=== PATIENT | female | born 1950 | race Caucasian/White ===

== ENCOUNTER → 2016-09-11 | Outpatient (CLI) | payer MEDICARE, OTHER | LOC: WI 08:10 | PROVIDERS: ATTEND Nurse Practitioner Family | DX: Z12.31 Encounter for screening mammogram for malignant neoplasm of breast (principal) | CPT/HCPCS: 77063; G0202; 77067 ==

== ENCOUNTER → 2017-02-04 | Outpatient (CLI) | payer MEDICARE, OTHER ==
--- NOTE | 2017-02-04 12:27 | RADIOLOGY REPORT (SQ) ---
EXAM DESCRIPTION: CHEST PA/LATERAL COMPLETED DATE/TIME: 02/04/2017 12:14 pm REASON FOR STUDY: PRE OP COMPARISON: 01/16/2016 EXAM PARAMETERS: NUMBER OF VIEWS: two views TECHNIQUE: Digital Frontal and Lateral radiographic views of the chest acquired. RADIATION DOSE: NA LIMITATIONS: none FINDINGS: LUNGS AND PLEURA: No opacities, masses or pneumothorax. No pleural effusion. MEDIASTINUM AND HILAR STRUCTURES: No masses or contour abnormalities. HEART AND VASCULAR STRUCTURES: Heart normal size. No evidence for failure. BONES: No acute findings. HARDWARE: None in the chest. OTHER: No other significant finding. IMPRESSION: NO SIGNIFICANT RADIOGRAPHIC FINDING IN THE CHEST. TECHNICAL DOCUMENTATION: JOB ID: [id number] [employer]- All Rights Reserved
--- NOTE | 2017-02-04 12:42 | EKG REPORT ---
SEVERITY:- OTHERWISE NORMAL ECG - SINUS RHYTHM ATRIAL PREMATURE COMPLEX : Confirmed by: Pedro Robles MD 04-Feb-2017 12:40:54
[2017-02-04 13:17] LABS: ANION GAP 11 (5-19); BLOOD UREA NITROGEN 17 mg/dL (7-20); CALCIUM 9.7 mg/dL (8.4-10.2); CARBON DIOXIDE 26 mmol/L (22-30); CHLORIDE 102 mmol/L (98-107); CREATININE RESULT 0.58 mg/dL (0.52-1.25); GLUCOSE 111 mg/dL (75-110); POTASSIUM 4.2 mmol/L (3.6-5.0); SODIUM 138.9 mmol/L (137-145)
== END ==
LOC: OD 11:44
PROVIDERS: ATTEND Orthopaedic Surgery
DX: Z01.810 Encounter for preprocedural cardiovascular examination (principal); Z01.812 Encounter for preprocedural laboratory examination; Z01.818 Encounter for other preprocedural examination; Z01.89 Encounter for other specified special examinations
CPT/HCPCS: 36415; 71020; 80048; 93005; 93010

== ENCOUNTER → 2017-09-21 | Outpatient (CLI) | payer MEDICARE, OTHER ==
--- NOTE | 2017-09-21 14:46 | WOMENS IMAGING REPORT ---
EXAM DESCRIPTION: 3D SCREENING MAMMO BILAT COMPLETED DATE/TIME: 09/21/2017 1:06 pm REASON FOR STUDY: ROUTINE SCREENING;Z12.31 Z12.31 ENCNTR SCREEN MAMMOGRAM FOR MALIGNANT NEOPLASM OF HERBERT COMPARISON: 2015, 2016 TECHNIQUE: Standard craniocaudal and mediolateral oblique views of each breast recorded using digita l acquisition and breast tomosynthesis. LIMITATIONS: None. FINDINGS: No masses, calcifications or architectural distortion. No areas of suspicion. Read with the assistance of CAD. .[facility] - R2 Cenova Version 1.3 .[facility] - R2 Cenova Version 1.3 .[facility] - R2 Cenova Version 2.4 .[facility] - R2 Cenova Version 2.4 .[facility] - R2 [employer] Property Inspector Version 9.2 IMPRESSION: NORMAL MAMMOGRAM. BIRADS 1. BREAST DENSITY: b. There are scattered areas of fibroglandular density. BIRAD: 1 NEGATIVE RECOMMENDATION: ROUTINE SCREENING COMMENT: The patient has been notified of the results by letter per SA requirements. Additional no tification policies are in place for contacting patient with suspicious or incomplete findings. Quality ID #[id number]: The [employer] recommends an annual screening mammogram for women aged 40 years or over. This facility utilizes a reminder system to ensure that all patients receive reminder letters, and/or direct phone calls for appointments. This includes reminders for routine scr eening mammograms, diagnostic mammograms, or other Breast Imaging Interventions when appropriate. Th is patient will be placed in the appropriate reminder system. The [employer] (ACR) has developed recommendations for screening MRI of the breast s in certain patient populations, to be used in conjunction with mammography. Breast MRI surveillanc e may be appropriate for women with more than 20% lifetime risk of developing breast cancer as deter mined by genetic testing, significant family history of the disease, or history of mantle radiation f or Hodgkins Disease. ACR Practice Guidelines 2008. DBT Technology DBT is a type of tomographic mammography. With conventional mammography, overlapping breast tissue ma y make lesions difficult to detect, even with good compression. DBT uses an x-ray tube that rotates a round the breast, taking images at different angles. These images are then combined to create thin sl ices of the breast that the radiologist can view as a 3D reconstruction. The bSafe unit can perform full-field digital mammograms (2D imaging); or DBT (3D imaging); or both, in a combination mode that quickly performs both the mammogram and the tomosynthesis scan while the breast is still compressed. PQRS 6045F: Fluoroscopic imaging is not utilized for breast tomosynthesis. TECHNICAL DOCUMENTATION: FINDING NUMBER: (1) ASSESSMENT: (1) JOB ID: [id number] [employer]- All Rights Reserved Reading location - IP/workstation name: [facility]
== END ==
LOC: WI 12:49
PROVIDERS: ATTEND Internal Medicine
DX: Z12.31 Encounter for screening mammogram for malignant neoplasm of breast (principal)
CPT/HCPCS: 77063; 77067

== ENCOUNTER → 2017-12-23 | Day surgery (SDC) | payer MEDICARE, OTHER ==
[~2017-12-23] MED LIST: BUPIVACAINE HCL 0.5 % INJ/PF 30 ML SDV ONE
--- NOTE | 2017-12-23 13:16 | Operative Report ---
PROCEDURE: KNEE RADIOFREQUENCY left under ultrasound guidance Preoperative Diagnosis: left knee osteoarthritis Postoperative Diagnosis:left knee osteoarthritis 1. Superolateral genicular branch from the vastus lateralis 2. Superomedial genicular branch from the vastus medialis 3. Inferomedial genicular branch from the saphenous nerve 4. Medial retinacular branch from the vastus intermedius DATE OF PROCEDURE: 23 December 2017 ANESTHESIA: Local anesthesia COMPLICATIONS: None reported PROCEDURE IN DETAIL: Hx/PE/meds/allergies/applicable labs reviewed. No changes and no contraindications were found. Full description of the procedure was provided including benefits as well as possible complications including transient increased pain, stomach irritation, mood alteration, transient weakness or parasthesias as well as more serious nerve injury, bleeding, infection or allergic reaction. Informed consent was obtained and documented. The patient was brought to the procedure room and placed on the exam table in a comfortable supine position. The place for needle placement was obtained by manual palpation with ultrasound confirmation. The sterile field was prepared by chloroprep and sterile drapes. Local anesthesia superficial and deep was provided by local infiltration of 2% lidocaine. A 17g 50mm radiofrequency introducer needle with a 4 mm active tip was placed overlying the left knee joint and using ultrasound guidance the needle was advanced to a bony endpoint on the superiolateral portion of the femoral condyle of the left knee. A second needle was advanced to a bony endpoint on the superiomedial portion of the femoral condyle. A third needle was then placed over the inferiomedial portion of the tibial condyle until a bony endpoint was met. 4th needle placed 3mm above the patella with the tip in contact with the Medial retinacular branch from the vastus intermedius. Attempted aspiration yielded no blood. Transverse ultrasound views showed all the needles at 50% depth of the femur and tibia. Motor stimulation was tested at 2.0 volts with no leg movement. Images were saved in AP and lateral. A mixture consisting of 0.5% bupivacaine was slowly injected. Then a radiofrequency ablation of each of the geniculate nerves were done at 80 degrees Celsius for 2 minutes and 30 seconds each. The needles were withdrawn. The patient tolerated the procedure well. After observation the patient was discharged with instructions and follow up. They were also provided contact information to call regarding any concerning symptoms or questions. IMPRESSION: 1. Successful geniculate left knee radiofrequency ablation was performed. 2. The patient was given prescription of home medicines. 3. RTC in 1-2 week(s).
== END ==
LOC: RAD 11:55
PROVIDERS: ATTEND Family Medicine
DX: M17.12 Unilateral primary osteoarthritis, left knee (principal)
CPT/HCPCS: 64640 ×4; J3490

== ENCOUNTER 2018-12-24 09:23 | Emergency (ER) | payer MEDICARE, OTHER ==
--- NOTE | 2018-12-24 09:53 | ER Document Report ---
ED Neck/Back Problem - General Chief Complaint: Back Pain Stated Complaint: LOWER BACK PAIN Time Seen by Provider: 12/24/18 09:32 Primary Care Provider: STEVE IQBAL MD [ACTIVE STAFF] - Follow up as needed Mode of Arrival: Wheelchair Information source: Patient Notes: 68-year-old female presented to ED for complaint of low back pain. She has a history of degenerative disc disease and 2 back surgeries. She states for the last week or so that the pain is been much worse going down both legs worse on the left. She states she does have Lidoderm patches tramadol meloxicam ketorolac pills another anti-inflammatory and she thinks she was taken a muscle relaxer for this pain. It is a chronic pain. He states she does get injections in her back sometimes. She states she just had a colonoscopy done a week and a half ago and then she just had CTs done last week for blood in her urine. She has had a complete hysterectomy. She has had thyroid removed inguinal hernia repair hysterectomy gallbladder removed and appendectomy. Patient is alert oriented respirations regular and unlabored speaking in full sentences. She does have pain on both SI joints and pain going down both thighs. She states there is no change in the function of her bowel or bladder, denies saddle anesthesia, denies loss of control or sensation to her lower extremities. She does state it lane from across her buttocks down both lateral thighs TRAVEL OUTSIDE OF THE [place] IN LAST 30 DAYS: No - HPI Patient complains to provider of: Pain, Lower back Onset: Other - Chronic worse for the last week and a half going down both legs Timing: Still present, Worse Quality of pain: Burning, Sharp Severity: Moderate Pain Level: 2 Recent injury: No Associated symptoms: Radiation to leg, Lower back pain - Across buttocks down both legs worse on the left Exacerbated by: Movement of trunk, Sitting position Relieved by: Nothing Similar symptoms previously: Yes Recently seen / treated by doctor: Yes - Related Data Allergies/Adverse Reactions: Penicillins Allergy (Severe, Verified 12/24/18 09:25) rash Past Medical History - General Information source: Patient - Social History Smoking Status: Never Smoker Frequency of alcohol use: Occasional Drug Abuse: None Lives with: Family Family History: Reviewed & Not Pertinent Patient has suicidal ideation: No Patient has homicidal ideation: No - Past Medical History Cardiac Medical History: Reports: Hx Hypertension Pulmonary Medical History: Reports: Hx Asthma - allergy induced asthma, Hx Bronchitis EENT Medical History: Reports: None Neurological Medical History: Reports: None Endocrine Medical History: Reports: Hx Hypothyroidism - Wound removed Renal/ Medical History: Reports: None Malignancy Medical History: Reports: None GI Medical History: Reports: Hx Gastritis, Hx Gastroesophageal Reflux Disease, Hx Colonoscopy, Hx Endoscopy Musculoskeletal Medical History: Reports Hx Arthritis - bursitis bilateral hips, Reports Hx Musculoskeletal Deformity, Reports Hx Musculoskeletal Trauma, Reports Other - Osteoporosis Skin Medical History: Reports None Infectious Medical History: Reports: None Past Surgical History: Reports: Hx Appendectomy, Hx Section, Hx Cholecystectomy, Hx Hysterectomy, Hx Inguinal Hernia, Hx Orthopedic Surgery - 2 back surgeries due to degenerative disc, Hx Thyroid Surgery - Thyroid removed - Immunizations Hx Diphtheria, Pertussis, Tetanus Vaccination: Yes Hx Pneumococcal Vaccination: 02/16/11 Review of Systems - Review of Systems Constitutional: No symptoms reported EENT: No symptoms reported Cardiovascular: No symptoms reported Respiratory: No symptoms reported Gastrointestinal: No symptoms reported Genitourinary: No symptoms reported Female Genitourinary: No symptoms reported Musculoskeletal: Back pain - With bilateral sciatica pain, Muscle pain, Muscle stiffness Skin: No symptoms reported Hematologic/Lymphatic: No symptoms reported Neurological/Psychological: No symptoms reported -: Yes All other systems reviewed and negative Physical Exam - Vital signs Vitals: Temp Pulse Resp BP Pulse Ox 97.3 F 92 18 139/75 H 95 12/24/18 09:28 12/24/18 09:28 12/24/18 09:28 12/24/18 09:28 12/24/18 09:28 Interpretation: Normal - General General appearance: Appears well, Alert - HEENT Head: Normocephalic, Atraumatic Eyes: Normal Pupils: PERRL - Respiratory Respiratory status: No respiratory distress Chest status: Nontender Breath sounds: Normal Chest palpation: Normal - Cardiovascular Rhythm: Regular Heart sounds: Normal auscultation Murmur: No - Abdominal Inspection: Normal Distension: No distension Bowel sounds: Normal Tenderness: Nontender Organomegaly: No organomegaly - Back Back: Tender, Vertebra tenderness - Low back pain no saddle anesthesia no signs or symptoms of cauda equina no loss control of bowel bladder does have pain down both buttocks down both thighs but no loss of sensation or loss of control of both extremities., Scars - 2 previous surgeries - Extremities General upper extremity: Normal inspection, Nontender, Normal color, Normal ROM, Normal temperature General lower extremity: Normal inspection, Nontender, Normal color, Normal ROM, Normal temperature, Normal weight bearing. No: Maco's sign - Neurological Neuro grossly intact: Yes Cognition: Normal Orientation: AAOx4 Ade Coma Scale Eye Opening: Spontaneous Ade Coma Scale Verbal: Oriented [place] Coma Scale Motor: Obeys Commands Ade Coma Scale Total: 15 Speech: Normal Motor strength normal: LUE, RUE, LLE, RLE Sensory: Normal - Psychological Associated symptoms: Normal affect, Normal mood - Skin Skin Temperature: Warm Skin Moisture: Dry Skin Color: Normal Course - Re-evaluation Re-evalutation: 12/24/18 10:46 Discussed x-rays with patient and written report of x-rays given to patient. She states she is follow-up with [facility] for surgery. There was multiple things going on to cause her back. She states she had been having some of these in the past. She does have arthritis she does have narrowing in the disc space. She was treated with Toradol Decadron Lidoderm and Robaxin. She was given instructions for back exercises hot packs and cold packs. She states she will follow-up with the enrichment specialist next week. She will take her x-ray report with her. Patient is alert oriented respirations regular and unlabored speaking in full sentences. After performing a Medical Screening Examination, I estimate there is LOW risk for EXPANDING OR RUPTURED ABDOMINAL AORTIC ANEURYSM, CAUDA EQUINA SYNDROME, EPIDURAL MASS LESION, or HERNIATED DISK CAUSING SEVERE SPINAL STENOSIS, thus I consider the discharge disposition reasonable. I have reevaluated this patient multiple times and no significant life threatening changes are noted. The patient and I have discussed the diagnosis and risks, and we agree with discharging home and close follow-up. We also discussed returning to the Emergency Department immediately if new or worsening symptoms occur with the understanding that symptoms and presentations can change. We have discussed the symptoms which are most concerning (e.g., saddle anesthesia, urinary or bowel incontinence or retention, changing or worsening pain) that necessitate immediate return. - Vital Signs Vital signs: Temp Pulse Resp BP Pulse Ox 97.3 F 92 18 139/75 H 95 12/24/18 09:28 12/24/18 09:28 12/24/18 09:28 12/24/18 09:28 12/24/18 09:28 - Diagnostic Test Radiology reviewed: Image reviewed, Reports reviewed Discharge - Discharge Clinical Impression: Acute exacerbation of chronic low back pain Condition: Stable Disposition: HOME, SELF-CARE Additional Instructions: Chronic Pain Control Stress, inactivity, and depression make pain more severe regardless of the cause of the pain. Stress and poor physical condition can cause pain such as headaches and backache. Relaxation: Rest in a quiet place with your eyes closed for 20 minutes twice daily. Concentrate on a pleasant image, or simply "feel" your breathing. Clear your mind. Stress management: Deal with your "stressors." Either take action, or eliminate the stressor from your life. Don't let things hang over you. Accept those things you can't change. Nutrition: Eat small, balanced meals -- don't skip, don't overeat. Meals should be high-carbohydrate, low-sugar, low-fat. Exercise: Exercise helps painful conditions and eases stress. Get 30 minutes of moderate exercise, five days a week. Do an activity that does not flare your pain. Precautions: Pain which continues to disrupt daily activities, or which changes in nature, requires a medical evaluation. Pain Clinic referral is available. We do not manage chronic pain in the Emergency Department. We will try to appropriately help you through an acute flare of your chronic painful condition, but for on-going chronic pain that does not improve, you will need to see your private doctor or supervisor painting shipyard. We do not provide repeated medication management of chronic painful conditions. If you wish, we can provide the name of local pain management physicians. MUSCLE RELAXERS: Muscle relaxing medications are usually prescribed for acute muscle spasm or injury to the neck and back. They are often combined with antiinflammatory pain medication for increased relief. You may stop the muscle relaxer when the pain and stiffness have improved. Start the medication again if spasms recur. Muscle relaxers may cause drowsiness, especially with the first dose. Do not operate machinery or drive while under the effects of the medication. Most muscle relaxers last up to 24 hours. Do not combine the medication with alcohol. Toradol Injection You have been given an injection of ketorolac tromethamine (Toradol). This is an excellent, safe drug for pain control. It also has potent antiinflammatory action. You should have significant pain relief within about one hour. Toradol is not addicting and is non-sedating. It does not interfere with driving or work. Call or return if you develop itching, hives, shortness of breath, or rash. STEROID MEDICATION: You have been given an injection of medicine of the cortisone/steroid class. This medication is used to control inflammation or allergy. It is often continued as a pill for a short period of time, until the acute process subsides. There are usually no side effects from short-term use of cortisone-like medications. Some persons feel an increased sense of well-being and are not sleepy at bedtime. Long-term use of cortisone medications is best avoided, unless required for a severe condition. If your condition does not remit, or relapses after the course of corticosteroid medication, you should consult your physician. Stretching Exercises for the Back The physician has recommended that you begin stretching exercises for your back. These are often used even while the back is painful. However, you should notify the physician if the activities seem to increase your pain. PELVIC TILT: Lie flat on your back with knees bent. Tighten your stomach and buttock muscles so it flattens your lower back against the floor. Hold 10 seconds. Repeat 10 times, twice daily. KNEE RAISE: Lying on the back with knees bent, raise one knee to your chest, then the other. Hold both knees against the chest 10 seconds, then lower one knee at a time. Repeat 10 times, twice daily. PARTIAL TRUNK RAISE: Lie face down, arms at your sides. Keeping your waist on the floor, use your arms raise your chest up. Support yourself on your elbows for 30 seconds. Repeat twice daily, increasing the time to two minutes as you recover. I have placed a Lidoderm patch on your back at this time. This can stay on for 12 hours then needs to be removed from 12 hours and then can be reapplied. Please do not put heating packs over top of a Lidoderm patch as it releases more Lidoderm than is supposed to. ICE PACKS: Apply ice packs frequently against the painful area. Many different schedules are recommended, such as "20 minutes on, 20 minutes off" or "one hour ice, two hours rest." If you need to work, you may need to go longer between ice treatments. You should plan to have the area ice packed AT LEAST one fourth of the time. The ice should be applied over the wrap, tape, or splint, or over a layer of cloth -- not directly against the skin. Some ice bags have a built-in cloth and can be put directly on the skin. WARM PACKS: After approximately two days, apply gentle heat (such as a heating pad or hot water bottle) for about 20 to 30 minutes about every two hours -- at least four times daily. Warmth and elevation will help you make a more rapid recove ry, and will ease the pain considerably. Do not use HOT heat, and never apply heat for longer than 30 minutes. The continuous heat can invisibly damage skin and muscles -- even when no burn is s een on the surface. Damaged muscles can make you MORE sore. FOLLOW-UP CARE: If you have been referred to a physician for follow-up care, call the physicians office for an appointment as you were instructed or within the next two days. If you experience worsening or a significant change in your symptoms, notify the physician immediately or return to the Emergency Department at any time for re-evaluation. Forms: Elevated Blood Pressure Referrals: STEVE IQBAL MD [ACTIVE STAFF] - Follow up as needed [facility] [Provider Group] - Follow up as needed
[2018-12-24] MEDS ORDERED: KETOROLAC TROMETHAMINE INJ/PF 30 MG/1 ML SDV IM ONE (09:56)
[2018-12-24] MEDS ORDERED: DEXAMETHASONE SOD PHOS INJ 10 MG/1 ML VIAL IM ONE (09:57)
[2018-12-24] MEDS ORDERED: LIDOCAINE 5% (700 MG) TRANSDERMAL ADH..PATCH TP ONE (09:57)
[2018-12-24] MEDS ORDERED: METHOCARBAMOL 500 MG TABLET PO ONE (09:57)
--- NOTE | 2018-12-24 10:19 | RADIOLOGY REPORT (SQ) ---
EXAM DESCRIPTION: L SPINE WHOLE COMPLETED DATE/TIME: 12/24/2018 9:57 am REASON FOR STUDY: low back pain previous surgery COMPARISON: None. NUMBER OF VIEWS: Five views including obliques. TECHNIQUE: AP, lateral, oblique, and sacral radiographic images acquired of the lumbar spine. LIMITATIONS: None. FINDINGS: MINERALIZATION: Normal. SEGMENTATION: Normal. No transitional anatomy. ALIGNMENT: Normal. VERTEBRAE: Maintained height. No fracture or worrisome bone lesion. DISCS: Multilevel disc space narrowing with osteophytes. POSTERIOR ELEMENTS: Pedicles and facets are intact. No pars defect or posterior arch defects. Facet arthropathy is present. HARDWARE: Posterior spinal fusion hardware at the L4 and L5 levels, the left connecting brian is fractu red above the left L5 pedicle screw level, no significant displacement. PARASPINAL SOFT TISSUES: Normal. PELVIS: Intact as visualized. No fractures or worrisome bone lesions. SI joints intact. OTHER: No other significant finding. 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 TECHNICAL DOCUMENTATION: JOB ID: [id number] 2010 [employer]- All Rights Reserved Reading location - IP/workstation name: [email or web address]
[2018-12-24 10:42] VITALS: BP 127/66
== END 2018-12-24 10:46 | disposition home or self-care (01) ==
LOC: ER 09:23
DX: G89.29 Other chronic pain (principal); M54.5 Low back pain
CPT/HCPCS: 99283; 96372; 72110; A9270; J1885; J1100

== ENCOUNTER 2019-01-10 07:38 | Day surgery (SDC) | payer MEDICARE, OTHER ==
[2019-01-10 09:24] LABS: INTERNATIONAL RATION (INR) 1.02; PROTHROMBIN TIME 13.4 SEC (11.4-15.4)
[2019-01-10 09:26] LABS: PARTIAL THROMBOPLASTIN TIME 25.5 SEC (23.5-35.8)
[2019-01-10] MEDS ORDERED: ONDANSETRON HCL INJ/PF 4 MG/2 ML SDV IV ONE (11:00)
[2019-01-10] MEDS ORDERED: OXYCODONE-ACETAMINOPHEN 5-325 MG TABLET ONE (13:00)
[2019-01-10] MEDS ORDERED: OXYCODONE-ACETAMINOPHEN 5-325 MG TABLET PO ONE (13:00)
--- NOTE | 2019-01-10 13:23 | RADIOLOGY REPORT (SQ) ---
EXAM DESCRIPTION: CT LUMBAR SPINE WITH; MYELOGRAM LUMBAR COMPLETED DATE/TIME: 01/10/2019 11:23 am; 01/10/2019 11:11 am REASON FOR STUDY: ARTHRODESIS STATUS Z98.1 ARTHRODESIS STATUS Z79.01 [facility] (CURRENT) USE OF AN TICOAGULANTS COMPARISON: 12/24/2018 FLUOROSCOPY TIME: 1.1 minutes 21 images saved to PACS. TECHNIQUE: Fluoroscopic guided lumbar myelogram. LIMITATIONS: None. PROCEDURE: After written consent and assessment were obtained, the patient was brought into the fluo roscopy room and placed prone on the table. The patient's lower back was prepped in a sterile fashio n and an entry site was selected under live fluoroscopic guidance. The entry site was anesthetized wi th 1% lidocaine. The spinal needle was advanced through the skin and into the thecal sac at the level of L2-3. Contrast was injected into the thecal sac. Following the procedure the needle was removed and a sterile bandage was placed of the site. CONTRAST: 15 cc mL Omnipaque 180. IMAGES ACQUIRED: 21 TECHNIQUE: After performing lumbar myelogram, axial images were acquired through the lumbar spine wi thout intravenous contrast. Images reviewed with lung, soft tissue and bone windows. Reconstructed coronal and sagittal MPR images reviewed. All images stored on PACS. All CT scanners at this facility use dose modulation, iterative reconstruction, and/or weight based d osing when appropriate to reduce radiation dose to as low as reasonably achievable (ALARA). [facility]: Dose Right [facility]: CareDose [facility]: Dose Right [facility]: Teradose 4D [facility]: [employer] FINDINGS: SEGMENTATION: Normal. No transitional anatomy. ALIGNMENT: Straightening of the normal lumbar lordosis. VERTEBRAL BODIES: No fractures. No dislocation. No acute findings. HARDWARE: Posterior fusion hardware and interbody spacer at L4-5. DISCS: L1-L2: Broad circumferential disc bulge without significant spinal canal stenosis. No significant ne ural foraminal narrowing. L2-L3: Broad circumferential disc bulge without significant spinal canal stenosis. There is contact of the traversing nerve roots. Mild bilateral neural foraminal narrowing secondary to broad-based di sc bulge. L3-L4: Broad-based circumferential disc bulge with mild canal narrowing contact of the traversing ner ve roots. There is mild bilateral neural foraminal narrowing secondary to disc bulge. L4-L5: Postsurgical changes from the posterior fusion and interbody spacer. No significant spinal ca nal stenosis mild right neural foraminal narrowing secondary to residual disc and likely postsurgical ossific material (sagittal image 15 and axial image 70) which is below the exiting nerve root. L5-S1: There is disc height loss with soft tissue posterior to the L5-S1 disc base and resultant high -grade spinal canal stenosis and effacement of the thecal sac. Findings suggestive of left paramedia n disc extrusion extending inferiorly and measuring approximately 17 mm in cranial caudal dimension ( sagittal image 23) and measuring approximately 9 x 10 mm and AP and lateral dimension (axial image 82 ). Exact delineation of the soft tissue limited secondary to adjacent hardware artifact and CT techn ique. There is significant disc height loss compared to prior exam dated 12/16/2015. These findings a re inferior to the exiting nerve roots and likely affect the transiting nerve roots. PEDICLES, TRANSVERSE PROCESSES: No fractures. No dislocation. No acute findings. FACETS, POSTERIOR ELEMENTS: No fractures. No dislocation. VISUALIZED RIBS: No fractures. SOFT TISSUES: Aortoiliac atherosclerosis. No bulky retroperitoneal adenopathy or mass. OTHER: Conus medullaris terminates at T12-L1 IMPRESSION: 1. New significant disc height loss with soft tissue posterior to the L5-S1 disc space and resultant high-grade spinal canal stenosis and effacement of the thecal sac suggestive of disc ex clusion and as detailed above. MRI could be considered for further evaluation. 2. L4-5 posterior fusion hardware with additional multilevel degenerative changes as detailed above. COMMENT: Patient medication list reviewed: Yes- Quality ID# [id number]:Eligible professional attests to doc umenting in the medical record they obtained, updated, or reviewed the patient's current medications. TECHNICAL DOCUMENTATION: JOB ID: [id number] Quality ID # [id number]: Final reports with documentation of one or more dose reduction techniques (e.g., Au tomated exposure control, adjustment of the mA and/or kV according to patient size, use of iterative reconstruction technique) 2010 [employer]- All Rights Reserved Reading location - IP/workstation name: [email or web address]
--- NOTE | 2019-01-10 13:23 | RADIOLOGY REPORT (SQ) ---
EXAM DESCRIPTION: CT LUMBAR SPINE WITH; MYELOGRAM LUMBAR COMPLETED DATE/TIME: 01/10/2019 11:23 am; 01/10/2019 11:11 am REASON FOR STUDY: ARTHRODESIS STATUS Z98.1 ARTHRODESIS STATUS Z79.01 [facility] (CURRENT) USE OF AN TICOAGULANTS COMPARISON: 12/24/2018 FLUOROSCOPY TIME: 1.1 minutes 21 images saved to PACS. TECHNIQUE: Fluoroscopic guided lumbar myelogram. LIMITATIONS: None. PROCEDURE: After written consent and assessment were obtained, the patient was brought into the fluo roscopy room and placed prone on the table. The patient's lower back was prepped in a sterile fashio n and an entry site was selected under live fluoroscopic guidance. The entry site was anesthetized wi th 1% lidocaine. The spinal needle was advanced through the skin and into the thecal sac at the level of L2-3. Contrast was injected into the thecal sac. Following the procedure the needle was removed and a sterile bandage was placed of the site. CONTRAST: 15 cc mL Omnipaque 180. IMAGES ACQUIRED: 21 TECHNIQUE: After performing lumbar myelogram, axial images were acquired through the lumbar spine wi thout intravenous contrast. Images reviewed with lung, soft tissue and bone windows. Reconstructed coronal and sagittal MPR images reviewed. All images stored on PACS. All CT scanners at this facility use dose modulation, iterative reconstruction, and/or weight based d osing when appropriate to reduce radiation dose to as low as reasonably achievable (ALARA). [facility]: Dose Right [facility]: CareDose [facility]: Dose Right [facility]: Teradose 4D [facility]: [employer] FINDINGS: SEGMENTATION: Normal. No transitional anatomy. ALIGNMENT: Straightening of the normal lumbar lordosis. VERTEBRAL BODIES: No fractures. No dislocation. No acute findings. HARDWARE: Posterior fusion hardware and interbody spacer at L4-5. DISCS: L1-L2: Broad circumferential disc bulge without significant spinal canal stenosis. No significant ne ural foraminal narrowing. L2-L3: Broad circumferential disc bulge without significant spinal canal stenosis. There is contact of the traversing nerve roots. Mild bilateral neural foraminal narrowing secondary to broad-based di sc bulge. L3-L4: Broad-based circumferential disc bulge with mild canal narrowing contact of the traversing ner ve roots. There is mild bilateral neural foraminal narrowing secondary to disc bulge. L4-L5: Postsurgical changes from the posterior fusion and interbody spacer. No significant spinal ca nal stenosis mild right neural foraminal narrowing secondary to residual disc and likely postsurgical ossific material (sagittal image 15 and axial image 70) which is below the exiting nerve root. L5-S1: There is disc height loss with soft tissue posterior to the L5-S1 disc base and resultant high -grade spinal canal stenosis and effacement of the thecal sac. Findings suggestive of left paramedia n disc extrusion extending inferiorly and measuring approximately 17 mm in cranial caudal dimension ( sagittal image 23) and measuring approximately 9 x 10 mm and AP and lateral dimension (axial image 82 ). Exact delineation of the soft tissue limited secondary to adjacent hardware artifact and CT techn ique. There is significant disc height loss compared to prior exam dated 12/16/2015. These findings a re inferior to the exiting nerve roots and likely affect the transiting nerve roots. PEDICLES, TRANSVERSE PROCESSES: No fractures. No dislocation. No acute findings. FACETS, POSTERIOR ELEMENTS: No fractures. No dislocation. VISUALIZED RIBS: No fractures. SOFT TISSUES: Aortoiliac atherosclerosis. No bulky retroperitoneal adenopathy or mass. OTHER: Conus medullaris terminates at T12-L1 IMPRESSION: 1. New significant disc height loss with soft tissue posterior to the L5-S1 disc space and resultant high-grade spinal canal stenosis and effacement of the thecal sac suggestive of disc ex clusion and as detailed above. MRI could be considered for further evaluation. 2. L4-5 posterior fusion hardware with additional multilevel degenerative changes as detailed above. COMMENT: Patient medication list reviewed: Yes- Quality ID# [id number]:Eligible professional attests to doc umenting in the medical record they obtained, updated, or reviewed the patient's current medications. TECHNICAL DOCUMENTATION: JOB ID: [id number] Quality ID # [id number]: Final reports with documentation of one or more dose reduction techniques (e.g., Au tomated exposure control, adjustment of the mA and/or kV according to patient size, use of iterative reconstruction technique) 2010 [employer]- All Rights Reserved Reading location - IP/workstation name: [email or web address]
[2019-01-10 14:28] VITALS: BP 149/66
== END 2019-01-10 14:05 | disposition home or self-care (01) ==
LOC: RAD 07:38
PROVIDERS: ATTEND Orthopaedic Surgery
DX: Z98.1 Arthrodesis status (principal); Z79.01 Long term (current) use of anticoagulants
CPT/HCPCS: 36415; 85610; 85730; 72265; 72132; A9270; J2405

== ENCOUNTER 2019-01-12 09:43 | Emergency (ER) | payer MEDICARE, OTHER ==
[2019-01-12] MEDS ORDERED: ONDANSETRON HCL INJ/PF 4 MG/2 ML SDV IV ONE (10:19)
[2019-01-12] MEDS ORDERED: NORMAL SALINE 1000 ML 1,000 ML IV ONE (10:19)
[2019-01-12] MEDS ORDERED: FENTANYL CITRATE INJ/PF 100 MCG/2 ML AMPUL IV ONE (10:19)
--- NOTE | 2019-01-12 10:21 | ER Document Report ---
ED Medical Screen (RME) - General Chief Complaint: Nausea/Vomiting Stated Complaint: HEADACHE,NAUSEA,VOMITING Time Seen by Provider: 01/12/19 10:10 Primary Care Provider: YOLANDA SYED MD [Primary Care Provider] - Follow up as needed Information source: Patient Notes: Patient presents complaining of headache, generalized body ache pain and low back pain. Patient has a history of low back pain and had a myelogram performed 3 days ago. Patient was seen by her primary doctor today who sent her here for concern about a possible CSF leak or infection. Patient reports nausea vomiting since yesterday with some diarrhea today. Patient denies any urinary symptoms. hx: Hypertension, chronic back pain I have greeted and performed a rapid initial assessment of this patient. A com prehensive ED assessment and evaluation of the patient, analysis of test results and completion of the medical decision making process will be conducted by additional ED providers. TRAVEL OUTSIDE OF THE [place] IN LAST 30 DAYS: No - Related Data Allergies/Adverse Reactions: Penicillins Allergy (Severe, Verified 01/12/19 09:44) rash Past Medical History - Past Medical History Cardiac Medical History: Reports: Hx Hypertension Denies: Hx Coronary Artery Disease, Hx Heart Attack Pulmonary Medical History: Reports: Hx Asthma Denies: Hx Bronchitis, Hx COPD, Hx Pneumonia Neurological Medical History: Denies: Hx Cerebrovascular Accident, Hx Seizures Endocrine Medical History: Reports: Hx Hypothyroidism - Wound removed Renal/ Medical History: Denies: Hx Peritoneal Dialysis GI Medical History: Reports: Hx Gastritis, Hx Gastroesophageal Reflux Disease, Hx Colonoscopy, Hx Endoscopy Musculoskeltal Medical History: Reports Hx Arthritis, Reports Hx Musculoskeletal Deformity, Reports Hx Musculoskeletal Trauma Past Surgical History: Reports: Hx Appendectomy, Hx Section, Hx Mary cystectomy, Hx Hysterectomy, Hx Inguinal Hernia, Hx Orthopedic Surgery - 2 back surgeries due to degenerative disc, Hx Thyroid Surgery - Thyroid removed. Denies: Hx Pacemaker - Immunizations Hx Diphtheria, Pertussis, Tetanus Vaccination: No History of Influenza Vaccine for 02/2017 - 07/2017 Season: Refused Physical Exam - Vital signs Vitals: Temp Pulse Resp BP Pulse Ox 98.0 F 95 18 117/70 95 01/12/19 09:47 01/12/19 09:47 01/12/19 09:47 01/12/19 09:47 01/12/19 09:47 - Abdominal Notes: Generalized abdominal tenderness - Neurological Orientation: AAOx4 [place] Coma Scale Eye Opening: Spontaneous Ade Coma Scale Verbal: Oriented Dulce Coma Scale Motor: Obeys Commands Ade Coma Scale Total: 15 Course - Vital Signs Vital signs: Temp Pulse Resp BP Pulse Ox 98.0 F 95 18 117/70 95 01/12/19 09:47 01/12/19 09:47 01/12/19 09:47 01/12/19 09:47 01/12/19 09:47 Doctor's Discharge - Discharge Referrals: YOLANDA SYED MD [Primary Care Provider] - Follow up as needed
[2019-01-12 10:36] LABS: ABSOLUTE BASOPHILS # (AUTO) 0.1 10^3/uL (0.0-0.2); ABSOLUTE EOSINOPHILS # (AUTO) 0.2 10^3/uL (0.0-0.6); ABSOLUTE LYMPHOCYTES (AUTO) 1.9 10^3/uL (0.5-4.7); ABSOLUTE MONOCYTES (AUTO) 0.6 10^3/uL (0.1-1.4); ABSOLUTE NEUT (AUTO) 4.7 10^3/uL (1.7-8.2); BASOPHILS % (AUTO) 0.8 % (0-2); HEMATOCRIT 45.4 % (36.0-47.0); HEMOGLOBIN 15.1 g/dL (12.0-15.5); LYMPHOCYTES % (AUTO) 25.6 % (13-45); MEAN CORPUSCULAR HEMOGLOBIN 30.6 pg (27.0-33.4); MEAN CORPUSCULAR HGB CONC 33.2 g/dL (32.0-36.0); MEAN CORPUSCULAR VOLUME 92 fl (80-97); MONOCYTES % (AUTO) 8.6 % (3-13); PLATELET COUNT 252 10^3/uL (150-450); RED BLOOD COUNT 4.94 10^6/uL (3.72-5.28); RED CELL DISTRIBUTION WIDTH 14.3 % (11.5-14.0); TOTAL CELLS COUNTED % (AUTO) 100 %; WHITE BLOOD COUNT 7.5 10^3/uL (4.0-10.5)
[2019-01-12 11:02] LABS: ALBUMIN 4.6 g/dL (3.5-5.0); ALKALINE PHOSPHATASE 34 U/L (38-126); ANION GAP 13 (5-19); ASPARTATE AMINO TRANSFERASE 23 U/L (14-36); BILIRUBIN,DIRECT 0.2 mg/dL (0.0-0.4); BILIRUBIN,TOTAL 0.7 mg/dL (0.2-1.3); BLOOD UREA NITROGEN 16 mg/dL (7-20); CALCIUM 9.8 mg/dL (8.4-10.2); CARBON DIOXIDE 26 mmol/L (22-30); CHLORIDE 98 mmol/L (98-107); GLUCOSE 137 mg/dL (75-110); TOTAL PROTEIN 7.2 g/dL (6.3-8.2)
[2019-01-12 11:15] LABS: INTERNATIONAL RATION (INR) 0.96; PROTHROMBIN TIME 12.8 SEC (11.4-15.4)
--- NOTE | 2019-01-12 11:15 | ER Document Report ---
ED General - General Chief Complaint: Nausea/Vomiting Stated Complaint: HEADACHE,NAUSEA,VOMITING Time Seen by Provider: 01/12/19 10:10 Primary Care Provider: YOLANDA SYED MD [Primary Care Provider] - Follow up as needed TRAVEL OUTSIDE OF THE [place] IN LAST 30 DAYS: No - HPI Notes: Patient presents for concern of headache chills that started on Wednesday after having a myelogram performed at this hospital. She is also been having headache nausea and vomiting but no chest pain shortness of breath no abdominal pain. No vision change - Related Data Allergies/Adverse Reactions: Penicillins Allergy (Severe, Verified 01/12/19 09:44) rash Past Medical History - General Information source: Patient - Social History Smoking Status: Never Smoker Family History: Reviewed & Not Pertinent Patient has suicidal ideation: No Patient has homicidal ideation: No - Past Medical History Cardiac Medical History: Reports: Hx Hypertension Denies: Hx Coronary Artery Disease, Hx Heart Attack Pulmonary Medical History: Reports: Hx Asthma Denies: Hx Bronchitis, Hx COPD, Hx Pneumonia Neurological Medical History: Denies: Hx Cerebrovascular Accident, Hx Seizures Endocrine Medical History: Reports: Hx Hypothyroidism - Wound removed Renal/ Medical History: Denies: Hx Peritoneal Dialysis GI Medical History: Reports: Hx Gastritis, Hx Gastroesophageal Reflux Disease, Hx Colonoscopy, Hx Endoscopy Musculoskeletal Medical History: Reports Hx Arthritis, Reports Hx Muscu loskeletal Deformity, Reports Hx Musculoskeletal Trauma Past Surgical History: Reports: Hx Appendectomy, Hx Section, Hx Cholecystectomy, Hx Hysterectomy, Hx Inguinal Hernia, Hx Orthopedic Surgery - 2 back surgeries due to degenerative disc, Hx Thyroid Surgery - Thyroid removed. Denies: Hx Pacemaker - Immunizations Hx Diphtheria, Pertussis, Tetanus Vaccination: No Hx Pneumococcal Vaccination: 02/16/11 Review of Systems - Review of Systems Constitutional: No symptoms reported EENT: No symptoms reported Cardiovascular: No symptoms reported Respiratory: No symptoms reported Gastrointestinal: No symptoms reported Genitourinary: No symptoms reported Female Genitourinary: No symptoms reported Musculoskeletal: No symptoms reported Skin: No symptoms reported Hematologic/Lymphatic: No symptoms reported Neurological/Psychological: See HPI Physical Exam - Vital signs Vitals: Temp Pulse Resp BP Pulse Ox 98.0 F 95 18 117/70 95 01/12/19 09:47 01/12/19 09:47 01/12/19 09:47 01/12/19 09:47 01/12/19 09:47 - General General appearance: Appears well, Alert - HEENT Head: Normocephalic, Atraumatic Eyes: Normal Conjunctiva: Normal Cornea: Normal Extraocular movements intact: Yes - Respiratory Respiratory status: No respiratory distress Chest status: Nontender Breath sounds: Normal Chest palpation: Normal - Cardiovascular Rhythm: Regular Heart sounds: Normal auscultation Murmur: No - Abdominal Inspection: Normal Distension: No distension Bowel sounds: Normal - Back Back: Other - Bruising lower lumbar midline back from pyelogram was performed - Extremities General upper extremity: Normal inspection General lower extremity: Normal strength - Neurological Neuro grossly intact: Yes Cognition: Normal Orientation: AAOx4 [place] Coma Scale Verbal: Oriented Speech: Normal Cranial nerves: Normal Motor strength normal: LUE, RUE, LLE, RLE Course - Re-evaluation Re-evalutation: 01/12/19 11:[address] Palacios. She reviewed the patient's myelogram. She reviewed the labs. The patient does not have a serum leukocytosis she is afebrile with normal vitals. Radiology technicians came to evaluate the patient in the emergency department for lumbar puncture and her headache improved when lying completely flat. This was suggestive of spinal tap headache versus other more concerning etiologies. I discussed this finding with the patient she is ad vised to lie flat for the next day and drink plenty of fluids. She is to have follow-up labs tomorrow or sooner in the emergency department if development of any fevers. Her signs and symptoms more consistent with a spinal headache as opposed to or other concerning pathologies. She is initially shivering in the emergency department but has stopped completely after blankets were placed over her. 01/12/19 11:37 - Vital Signs Vital signs: Temp Pulse Resp BP Pulse Ox 98.4 F 95 14 126/75 H 96 01/12/19 11:23 01/12/19 09:47 01/12/19 10:21 01/12/19 10:21 01/12/19 10:21 - Laboratory Result Diagrams: 01/12/19 10:13 01/12/19 10:13 Laboratory results interpreted by me: 01/12/19 01/12/19 10:13 10:13 RDW 14.3 H Sodium 136.7 L Glucose 137 H Alkaline Phosphatase 34 L Discharge - Discharge Clinical Impression: Headache Qualifiers: Headache type: unspecified Headache chronicity pattern: unspecified pattern Intractability: not intractable Qualified Code(s): R51 - Headache Condition: Good Disposition: HOME, SELF-CARE Additional Instructions: Please return to the emergency department tomorrow for lab redraw. Also, return sooner if development of any fevers or worsening symptoms. Lie down flat and please drink plenty of water as you are symptoms are suggestive of a spinal tap headache. Prescriptions: Prochlorperazine Maleate [Compazine 10 mg Tablet] 10 mg PO ASDIR PRN #10 tablet PRN Reason: Referrals: YOLANDA SYED MD [Primary Care Provider] - Follow up as needed
[2019-01-12 12:19] VITALS: BP 118/77
== END 2019-01-12 12:19 | disposition home or self-care (01) ==
LOC: ER 09:43
DX: R11.2 Nausea with vomiting, unspecified (principal); R51 Headache; R68.83 Chills (without fever); I10 Essential (primary) hypertension; Z88.0 Allergy status to penicillin; Z90.49 Acquired absence of other specified parts of digestive tract; Z90.710 Acquired absence of both cervix and uterus
CPT/HCPCS: 99284; 96361; 96374; 96375; 36415; 87040; 83690; 85025; 85610; 80053; J3010; J2405; J7030